=== PATIENT | male | born 1930 | race Caucasian/White ===

== ENCOUNTER 2017-06-14 21:16 | Outpatient (CLI) | END 2017-06-14 21:17 | disposition short-term general hospital (02) | LOC: AMBL 21:16 | PROVIDERS: ATTEND Emergency Medicine | DX: R40.4 Transient alteration of awareness (principal); F03.91 Unspecified dementia, unspecified severity, with behavioral disturbance ==

== ENCOUNTER 2017-06-19 06:48 | Outpatient (CLI) | END 2017-06-19 06:49 | disposition home or self-care (01) | LOC: AMBL 06:48 | PROVIDERS: ATTEND Internal Medicine Geriatric Medicine | DX: R29.810 Facial weakness (principal); R50.9 Fever, unspecified; R09.02 Hypoxemia; R10.32 Left lower quadrant pain; I49.9 Cardiac arrhythmia, unspecified; R41.0 Disorientation, unspecified; F03.90 Unspecified dementia, unspecified severity, without behavioral disturbance, psychotic disturbance, mood disturbance, and anxiety; R40.2411 Glasgow coma scale score 13-15, in the field [EMT or ambulance] ==